=== PATIENT | male | born 1960 | race Caucasian/White ===

== ENCOUNTER 2016-07-25 05:01 | Observation (INO) | payer OTHER ==
[2016-07-25] VITALS (9 sets, daily range): BP systolic 111–130; BP diastolic 71–87
[~2016-07-25] VITALS: Ht 170.2 cm; Wt 87.7 kg
[~2016-07-25 05:01] MED LIST: BENA20TA2 PO; CARI350T PO; CYCL-259 PO; GLIP5TAB10 PO; GLIP5TAB22 PO; HYDR-3307 PO; HYDR1LIQ6 PO; HYDR1TAB14 PO; INSU200I4 SQ-INSULIN; LISI-167 PO; LISI-170 PO; METF500T27 PO; METF500T4 PO; ONDA4TAB7 PO; OXYC10SY PEG; SULF1TAB24 PO; TRAZ150T68 PO; TRAZ50TA18 PO
[2016-07-25] MEDS ORDERED: FENT1PAT77 TD (06:00)
[2016-07-25 06:21] LABS: HEMOGLOBIN 7.9 g/dL (13.7-18.0)
[2016-07-25 06:23] LABS: BLOOD UREA NITROGEN 12 mg/dL (7-18)
[2016-07-25 06:27] LABS: ASPARTATE AMINO TRANSFERASE 17 U/L (15-37)
[2016-07-25 07:43] LABS: ANISOCYTOSIS 1+; OVALOCYTES 1+; POLYCHROMASIA 1+
[2016-07-25] MEDS ORDERED: LIDOCAINE 1%, 20ML ONE (08:26)
[2016-07-25] MEDS ORDERED: FENTANYL 75 MCG PATCH TD SCH (09:30)
[2016-07-25] MEDS ORDERED: INSU100V5 SQ-INSULIN (09:36)
[2016-07-25] MEDS ORDERED: HYDROmorphone 1 MG/ML, 1ML ONE ×4 (09:39→16:22)
[2016-07-25] MEDS ORDERED: VISIPAQUE 270 MG/ML, 50ML BOTTLE ONE (09:42)
[2016-07-25] MEDS ORDERED: HYDROmorphone 2MG TABLET JT PRN (10:00)
[2016-07-25] MEDS ORDERED: ONDANSETRON 2MG/ML, 2ML IVP PRN (10:00)
[2016-07-25] MEDS: HYDROmorphone 2 MG/ML, 1ML IV PRN ×4 (10:10→16:25)
[2016-07-25] MEDS ORDERED: ENOXAPARIN 40 MG/0.4 ML ONE (10:32)
[2016-07-25] MEDS: ENOXAPARIN 40 MG/0.4 ML SQ SCH (10:35)
[2016-07-25] MEDS: INSULIN REGULAR 100 UNITS/ML, 3ML VIAL SQ-INSULIN SCH ×3 (12:12→20:10)
[2016-07-25] MEDS: HYDROmorphone 1 MG/ML, 1ML IVPush PRN ×2 (20:02→23:40)
[2016-07-25] MEDS ORDERED: TRAZODONE 150MG TABLET JT SCH (21:00)
[2016-07-26 02:27] VITALS: BP 138/85
[2016-07-26] MEDS: HYDROmorphone 1 MG/ML, 1ML IVPush PRN ×3 (03:35→09:30)
[2016-07-26 04:03] LABS: HEMOGLOBIN 10.1 g/dL (13.7-18.0)
[2016-07-26 04:15] LABS: ANISOCYTOSIS 1+; OVALOCYTES 1+; POIKILOCYTOSIS 1+; POLYCHROMASIA 1+
[2016-07-26 04:16] LABS: MONOS WITH VACUOLES 1+
[2016-07-26 04:17] LABS: BLOOD UREA NITROGEN 8 mg/dL (7-18)
[2016-07-26] MEDS: INSULIN REGULAR 100 UNITS/ML, 3ML VIAL SQ-INSULIN SCH ×2 (07:23→11:06)
[2016-07-26 07:43] VITALS: BP 131/85
[2016-07-26] MEDS: ENOXAPARIN 40 MG/0.4 ML SQ SCH (09:29)
== END 2016-07-26 11:10 | disposition home or self-care (01) ==
LOC: ED 07:32 → EDIP 07:33 → INTOOBSV 07:33 → ED 07:43 → 3NW 10:40
PROVIDERS: ADMIT Internal Medicine; ATTEND Family Medicine
DX: T85.628A Displacement of other specified internal prosthetic devices, implants and grafts, initial encounter (principal); D64.9 Anemia, unspecified; C15.9 Malignant neoplasm of esophagus, unspecified; I10 Essential (primary) hypertension; E11.65 Type 2 diabetes mellitus with hyperglycemia; E44.0 Moderate protein-calorie malnutrition; E87.1 Hypo-osmolality and hyponatremia; G47.00 Insomnia, unspecified; Z80.3 Family history of malignant neoplasm of breast; Z83.3 Family history of diabetes mellitus; Y84.9 Medical procedure, unspecified as the cause of abnormal reaction of the patient, or of later complication, without mention of misadventure at the time of the procedure; Y92.89 Other specified places as the place of occurrence of the external cause
CPT/HCPCS: 36415; 36430; 36569; 49452; 74022; 75984; 76937; 77001; 80048; 80053; 82962; 85025; 86850; 86900; 86923; 96372; 96374; 96376; 99291; C1729; C1751; C1769; G0378; J1170; J1650; J3490; P9016; Q9966

== ENCOUNTER → 2016-08-01 | Outpatient (CLI) | payer OTHER ==
[~2016-08-01] MED LIST changes: +FENT1PAT77 TD; +INSU100V5 SQ-INSULIN
== END | disposition home or self-care (01) ==
LOC: ROC 09:16
PROVIDERS: ATTEND Radiology Radiation Oncology
DX: Z51.0 Encounter for antineoplastic radiation therapy (principal); C15.5 Malignant neoplasm of lower third of esophagus; E11.9 Type 2 diabetes mellitus without complications; I10 Essential (primary) hypertension
CPT/HCPCS: 99213; G0463

== ENCOUNTER → 2016-08-05 | Outpatient (CLI) | payer OTHER ==
[~2016-08-05] MED LIST changes: +OMNIPAQUE 350 MG/ML, 100ML BOTTLE ONE
== END | disposition home or self-care (01) ==
LOC: RAD 12:21
PROVIDERS: ATTEND Internal Medicine Hematology & Oncology
DX: C15.5 Malignant neoplasm of lower third of esophagus (principal); R59.0 Localized enlarged lymph nodes; J90 Pleural effusion, not elsewhere classified; J98.11 Atelectasis; K22.8 Other specified diseases of esophagus; M47.896 Other spondylosis, lumbar region; Z93.4 Other artificial openings of gastrointestinal tract status
CPT/HCPCS: 71260; 74177; Q9967

== ENCOUNTER 2016-08-31 13:10 | Inpatient (IN) | payer OTHER ==
[~2016-08-31] VITALS: Ht 170.2 cm; Wt 92.5 kg
[~2016-08-31 13:10] MED LIST changes: -OMNIPAQUE 350 MG/ML, 100ML BOTTLE ONE
[2016-08-31] MEDS ORDERED: SODIUM CHLORIDE 0.9% 1,000 ML IV ONE (13:33)
[2016-08-31] MEDS ORDERED: SODIUM CHLORIDE FLUSH 10ML SYR IVF ONE (14:00)
[2016-08-31 14:18] LABS: BLOOD UREA NITROGEN 13 mg/dL (7-18)
[2016-08-31] MEDS ORDERED: ONDANSETRON 2MG/ML, 2ML IVPush ONE (15:30)
[2016-08-31] MEDS ORDERED: OMNIPAQUE 350 MG/ML, 100ML BOTTLE ONE (15:40)
[2016-08-31] MEDS ORDERED: FENT1PAT9 TD (15:58)
[2016-08-31] MEDS ORDERED: TRAZ50TA18 PO (15:58)
[2016-08-31] MEDS ORDERED: ACET-1600 PO (15:58)
[2016-08-31] MEDS ORDERED: CARI350T PO (15:58)
[2016-08-31] MEDS ORDERED: ESCI10TA PO (15:58)
[2016-08-31] MEDS ORDERED: PROM12.55 PO (15:58)
[2016-08-31] MEDS ORDERED: HYDROmorphone 1 MG/ML, 1ML IV ONE (16:00)
[2016-08-31] MEDS ORDERED: VANCOMYCIN PER PHARMACY MC ONE (17:00)
[2016-08-31] MEDS ORDERED: PIPERACILLIN/TAZO/PMX 3.375GM 50 ML IVPB ONE (17:00)
[2016-08-31] MEDS ORDERED: ONDANSETRON 2MG/ML, 2ML ONE (17:36)
[2016-08-31] MEDS ORDERED: LORazepam 2 MG/ML, 1ML ONE (17:37)
[2016-08-31] MEDS ORDERED: PIPERACILLIN/TAZO/PMX 3.375GM 50 ML ONE (17:39)
[2016-08-31] MEDS ORDERED: OMNIPAQUE 350 MG/ML, 150 ML BOTTLE ONE (17:40)
[2016-08-31] MEDS ORDERED: VANCOMYCIN 1,800 MG in SODIUM CHLORIDE 0.9% 250 ML IV ONE (18:00)
[2016-08-31] MEDS ORDERED: FENTANYL 50 MCG PATCH TD SCH (18:00)
[2016-08-31] MEDS ORDERED: SODIUM CHLORIDE 0.9% 1,000 ML IV SCH (18:01)
[2016-08-31 18:11] VITALS: BP 136/89
[2016-08-31] MEDS ORDERED: BISACODYL 10 MG SUPP PR PRN (18:30)
[2016-08-31] MEDS: INSULIN REGULAR 100 UNITS/ML, 3ML VIAL SQ-INSULIN SCH (18:30)
[2016-08-31] MEDS: HYDROmorphone 2 MG/ML, 1ML IV PRN ×3 (18:35→22:47)
[2016-08-31 19:27] VITALS: BP 111/71
[2016-08-31] MEDS: MEROPENEM 1 GM in SODIUM CHLORIDE 0.9% 100 ML IV SCH (20:00)
[2016-08-31] MEDS: ONDANSETRON 2MG/ML, 2ML IVP PRN (22:03)
[2016-08-31] MEDS: FLUCONAZOLE 400 MG/200 ML 200 ML IV SCH (22:49)
[2016-08-31] MEDS ORDERED: DIPHENHYDRAMINE 50 MG/ML, 1ML IVPush ONE (23:30)
[2016-09-01] MEDS: INSULIN REGULAR 100 UNITS/ML, 3ML VIAL SQ-INSULIN SCH ×4 (00:30→20:15)
[2016-09-01] MEDS: D5%-0.9% NACL 1,000 ML IV SCH ×2 (01:02→11:36)
[2016-09-01] MEDS: ACETAMINOPHEN 650 MG SUPP PR PRN (01:09)
[2016-09-01 01:13] VITALS: BP 146/84
[2016-09-01] MEDS ORDERED: HYDROmorphone 1 MG/ML, 1ML ONE (01:51)
[2016-09-01] MEDS: HYDROmorphone 2 MG/ML, 1ML IV PRN ×7 (01:53→22:05)
[2016-09-01] MEDS: MEROPENEM 1 GM in SODIUM CHLORIDE 0.9% 100 ML IV SCH ×3 (04:20→20:15)
[2016-09-01 04:55] LABS: ASPARTATE AMINO TRANSFERASE 24 U/L (15-37); BLOOD UREA NITROGEN 7 mg/dL (7-18)
[2016-09-01] MEDS: ONDANSETRON 2MG/ML, 2ML IVP PRN ×2 (08:22→15:13)
[2016-09-01 08:34] VITALS: BP 134/80
[2016-09-01] MEDS ORDERED: FENTANYL 25 MCG PATCH ONE (10:51)
[2016-09-01] MEDS: FENTANYL 25 MCG PATCH TD SCH (10:54)
[2016-09-01 15:02] VITALS: BP 147/85
[2016-09-01] MEDS ORDERED: PHARMACOKINETIC MONITORING MC PRN (15:30)
[2016-09-01] MEDS ORDERED: VANCOMYCIN PER PHARMACY MC PRN (15:30)
[2016-09-01] MEDS ORDERED: POTASSIUM CHLORIDE 40 MEQ in SODIUM CHLORIDE 0.9% 500 ML IV ONE (15:30)
[2016-09-01] MEDS ORDERED: VANCOMYCIN PMX 1GM/200ML 200 ML IV ONE (15:30)
[2016-09-01] MEDS ORDERED: PHARMACOKINETIC CONSULTATION MC ONE (15:30)
[2016-09-01 19:52] VITALS: BP 126/76
[2016-09-01] MEDS: ONDANSETRON 2MG/ML, 2ML IVPush PRN (22:05)
[2016-09-01] MEDS: TRAZODONE 50MG TABLET PO SCH (22:06)
[2016-09-01] MEDS: VANCOMYCIN 1,800 MG in SODIUM CHLORIDE 0.9% 250 ML IV SCH (22:06)
[2016-09-02] MEDS: FLUCONAZOLE 400 MG/200 ML 200 ML IV SCH (00:34)
[2016-09-02] MEDS: HYDROmorphone 2 MG/ML, 1ML IV PRN ×8 (01:06→23:31)
[2016-09-02] MEDS: ONDANSETRON 2MG/ML, 2ML IVPush PRN ×5 (02:17→21:21)
[2016-09-02 02:33] VITALS: BP 119/72
[2016-09-02] MEDS: MEROPENEM 1 GM in SODIUM CHLORIDE 0.9% 100 ML IV SCH ×3 (04:16→21:20)
[2016-09-02 05:00] LABS: BLOOD UREA NITROGEN 4 mg/dL (7-18)
[2016-09-02] MEDS: INSULIN REGULAR 100 UNITS/ML, 3ML VIAL SQ-INSULIN SCH ×4 (07:00→21:00)
[2016-09-02 07:53] VITALS: BP 125/92
[2016-09-02] MEDS: CITALOPRAM 20 MG TABLET PO SCH (07:59)
[2016-09-02] MEDS: VANCOMYCIN 1,800 MG in SODIUM CHLORIDE 0.9% 250 ML IV SCH ×2 (10:34→22:23)
[2016-09-02 13:42] VITALS: BP 118/75
[2016-09-02] MEDS: CETIRIZINE 10 MG TABLET PO SCH (17:15)
[2016-09-02 19:44] VITALS: BP 130/50
[2016-09-02] MEDS: TRAZODONE 50MG TABLET PO SCH (21:21)
[2016-09-03] MEDS: FLUCONAZOLE 400 MG/200 ML 200 ML IV SCH (00:29)
[2016-09-03] MEDS: ONDANSETRON 2MG/ML, 2ML IVPush PRN ×4 (01:28→19:54)
[2016-09-03] MEDS: HYDROmorphone 2 MG/ML, 1ML IV PRN ×6 (02:46→21:24)
[2016-09-03 03:38] VITALS: BP 118/66
[2016-09-03] MEDS: MEROPENEM 1 GM in SODIUM CHLORIDE 0.9% 100 ML IV SCH ×2 (05:36→19:53)
[2016-09-03 07:48] VITALS: BP 117/73
[2016-09-03] MEDS: CITALOPRAM 20 MG TABLET PO SCH (09:08)
[2016-09-03] MEDS: CETIRIZINE 10 MG TABLET PO SCH (09:08)
[2016-09-03] MEDS: INSULIN REGULAR 100 UNITS/ML, 3ML VIAL SQ-INSULIN SCH ×4 (09:28→21:29)
[2016-09-03 13:21] VITALS: BP 134/84
[2016-09-03] MEDS: VANCOMYCIN 1,800 MG in SODIUM CHLORIDE 0.9% 250 ML IV SCH (15:47)
[2016-09-03 19:04] VITALS: BP 130/77
[2016-09-03] MEDS: TRAZODONE 50MG TABLET PO SCH (21:23)
[2016-09-04] MEDS: ONDANSETRON 2MG/ML, 2ML IVPush PRN ×2 (00:20→04:30)
[2016-09-04] MEDS: HYDROmorphone 2 MG/ML, 1ML IV PRN ×8 (00:20→23:43)
[2016-09-04] MEDS: FLUCONAZOLE 400 MG/200 ML 200 ML IV SCH (00:20)
[2016-09-04 03:06] VITALS: BP 124/74
[2016-09-04] MEDS: MEROPENEM 1 GM in SODIUM CHLORIDE 0.9% 100 ML IV SCH ×2 (03:21→11:46)
[2016-09-04] MEDS: VANCOMYCIN 1,800 MG in SODIUM CHLORIDE 0.9% 250 ML IV SCH (04:30)
[2016-09-04 05:32] LABS: BLOOD UREA NITROGEN 4 mg/dL (7-18)
[2016-09-04] MEDS: INSULIN REGULAR 100 UNITS/ML, 3ML VIAL SQ-INSULIN SCH ×4 (07:00→20:13)
[2016-09-04 07:26] VITALS: BP 116/78
[2016-09-04] MEDS: CITALOPRAM 20 MG TABLET PO SCH (09:40)
[2016-09-04] MEDS: CETIRIZINE 10 MG TABLET PO SCH (09:40)
[2016-09-04] MEDS: FENTANYL 25 MCG PATCH TD SCH (11:47)
[2016-09-04 14:00] VITALS: BP 118/79
[2016-09-04] MEDS ORDERED: POTASSIUM CHLORIDE 40 MEQ in SODIUM CHLORIDE 0.9% 500 ML IV ONE (14:00)
[2016-09-04] MEDS ORDERED: PIPERACILLIN/TAZO/PMX 3.375GM 50 ML IV SCH (14:00)
[2016-09-04] MEDS: CEPHALEXIN 500 MG CAPSULE PO SCH ×2 (17:08→20:09)
[2016-09-04] MEDS: SULFAMETH./TRIMETHOPRIM DS 800MG/160MG TABLET PO SCH (17:09)
[2016-09-04 19:44] VITALS: BP 143/87
[2016-09-04] MEDS: TRAZODONE 50MG TABLET PO SCH (20:09)
[2016-09-05] MEDS: ACETAMINOPHEN 650 MG SUPP PR PRN (01:06)
[2016-09-05] MEDS: ONDANSETRON 2MG/ML, 2ML IVPush PRN (01:15)
[2016-09-05 01:21] VITALS: BP 160/96
[2016-09-05] MEDS: HYDROmorphone 2 MG/ML, 1ML IV PRN ×6 (02:38→17:33)
[2016-09-05 03:00] VITALS: BP 109/69
[2016-09-05] MEDS: SULFAMETH./TRIMETHOPRIM DS 800MG/160MG TABLET PO SCH ×2 (03:36→15:00)
[2016-09-05] MEDS: CEPHALEXIN 500 MG CAPSULE PO SCH ×3 (03:36→15:00)
[2016-09-05 04:55] LABS: BLOOD UREA NITROGEN 6 mg/dL (7-18)
[2016-09-05] MEDS: CETIRIZINE 10 MG TABLET PO SCH (07:34)
[2016-09-05] MEDS: INSULIN REGULAR 100 UNITS/ML, 3ML VIAL SQ-INSULIN SCH ×3 (07:34→16:12)
[2016-09-05] MEDS: CITALOPRAM 20 MG TABLET PO SCH (07:34)
[2016-09-05 07:38] VITALS: BP 133/86
[2016-09-05 13:01] VITALS: BP 112/74
[2016-09-05] MEDS ORDERED: SULF1TAB3 PO (16:17)
[2016-09-05] MEDS ORDERED: CEPH-376 PO (16:17)
[2016-09-05] MEDS ORDERED: SENN1TAB7 PO (16:25)
== END 2016-09-05 18:00 | disposition home or self-care (01) | DRG 603 ==
LOC: ED 14:10 → EDIP 17:06 → 3NW 17:44
PROVIDERS: ADMIT Internal Medicine; ATTEND Internal Medicine
DX: L02.211 Cutaneous abscess of abdominal wall (principal); E44.0 Moderate protein-calorie malnutrition; Z85.01 Personal history of malignant neoplasm of esophagus; G47.00 Insomnia, unspecified; E11.9 Type 2 diabetes mellitus without complications; Z79.4 Long term (current) use of insulin; I10 Essential (primary) hypertension; Z83.3 Family history of diabetes mellitus; Z80.3 Family history of malignant neoplasm of breast; D64.9 Anemia, unspecified; F32.9 Major depressive disorder, single episode, unspecified; Z92.3 Personal history of irradiation; Z92.21 Personal history of antineoplastic chemotherapy; Z68.39 Body mass index [BMI] 39.0-39.9, adult
CPT/HCPCS: 36415; 71010; 74177; 74220; 80048; 80053; 82040; 82962; 83036; 83605; 83735; 84145; 85025; 87040; 87070; 87077; 87186; 87205; 87324; 96361; 96365; 96375; J1170; J1450; J1815; J2185; J2405; J2543; J3370; J3480; J7042; Q9967; J1200; J7030; J7040; J7050

== ENCOUNTER 2016-09-11 08:20 | Inpatient (IN) | payer OTHER ==
[~2016-09-11] VITALS: Ht 170.2 cm; Wt 90.9 kg
[~2016-09-11 08:20] MED LIST changes: +ACET-1600 PO; +BUPIVACAINE/PF-EPI 0.25% 1:200K ONE; +CEPH-376 PO; +ESCI10TA PO; +FENT1PAT9 TD; +PROM12.55 PO; +SENN1TAB7 PO; +SULF1TAB3 PO
[2016-09-11 09:05] VITALS: BP 120/80
[2016-09-11] MEDS ORDERED: LACTATED RINGERS 1,000 ML IV SCH (09:14)
[2016-09-11] MEDS ORDERED: LIDOCAINE 1%, 2ML SQ PRN (09:30)
[2016-09-11] MEDS ORDERED: FENTANYL PF 250 MCG/5ML ONE ×2 (11:04→14:00)
[2016-09-11] MEDS ORDERED: MIDAZOLAM 1 MG/ML, 2ML ONE (11:04)
[2016-09-11] MEDS ORDERED: PHENYLEPHRINE 10 MG/ML ONE (11:54)
[2016-09-11] MEDS ORDERED: ROCURONIUM 10 MG/ML ONE (11:54)
[2016-09-11] MEDS ORDERED: SUCCINYLCHOLINE 20 MG/ML, 10ML ONE (11:54)
[2016-09-11] MEDS ORDERED: CEFOTETAN 2 GM ONE (11:54)
[2016-09-11] MEDS ORDERED: VASOPRESSIN 20 UNIT/ML, 1ML ONE (11:54)
[2016-09-11] MEDS ORDERED: PROPOFOL 10 MG/ML, 20ML ONE (11:54)
[2016-09-11] MEDS ORDERED: SUGAMMADEX 200 MG/2 ML IVPush ONE (11:54)
[2016-09-11] MEDS ORDERED: ONDANSETRON 2MG/ML, 2ML ONE ×2 (11:54)
[2016-09-11] MEDS ORDERED: ESMOLOL 100 MG/10 ML ONE (11:54)
[2016-09-11] MEDS ORDERED: HYDROmorphone 1 MG/ML, 1ML ONE (12:37)
[2016-09-11] MEDS ORDERED: INSULIN SINGLE DOSE, ER SQ-INSULIN ONE (13:49)
[2016-09-11] MEDS ORDERED: ALBUMIN HUMAN 5% 500 ML ONE (13:49)
[2016-09-11] MEDS ORDERED: HYDROMORPHONE EPIDCONT SCH ×2 (14:30→18:10)
[2016-09-11] MEDS ORDERED: SODIUM CHLORIDE 0.9% EPIDCONT SCH ×2 (14:30→18:10)
[2016-09-11] MEDS ORDERED: BUPIVACAINE EPIDCONT SCH ×2 (14:30→18:10)
[2016-09-11] MEDS ORDERED: BUPIVACAINE/PF 0.5% ONE (17:09)
[2016-09-11] MEDS ORDERED: BUPIVACAINE/PF 0.25% ONE (17:10)
[2016-09-11] MEDS ORDERED: FENTANYL 75 MCG PATCH TD SCH (18:00)
[2016-09-11] MEDS ORDERED: hydrALAzine 20 MG/ML, 1ML IVPush PRN (18:00)
[2016-09-11] MEDS ORDERED: ONDANSETRON 2MG/ML, 2ML IVPush PRN ×2 (18:00→18:30)
[2016-09-11] MEDS ORDERED: ENALAPRILAT 1.25 MG/ML, 2ML IVPush PRN (18:00)
[2016-09-11] MEDS: HYDROmorphone 1 MG/ML, 1ML IV PRN ×2 (18:00→18:15)
[2016-09-11] MEDS ORDERED: DIPHENHYDRAMINE 50 MG/ML, 1ML IVPush PRN (18:00)
[2016-09-11] MEDS ORDERED: HYDROmorphone 2 MG/ML, 1ML ONE (18:01)
[2016-09-11] MEDS ORDERED: hydrALAzine 20 MG/ML, 1ML IV PRN (18:30)
[2016-09-11] MEDS ORDERED: PROMETHAZINE 25 MG/ML, 1ML IV PRN (18:30)
[2016-09-11] MEDS ORDERED: MEPERIDINE/PF 25MG/0.5ML IVPush PRN (18:30)
[2016-09-11] MEDS ORDERED: EPHEDRINE 50 MG/ML, 1ML IVPush PRN ×2 (18:30→21:00)
[2016-09-11] MEDS ORDERED: MIDAZOLAM 1 MG/ML, 2ML IV PRN (18:30)
[2016-09-11] MEDS ORDERED: LABETALOL 5MG/ML, 20ML IV PRN (18:30)
[2016-09-11] MEDS ORDERED: FENTANYL PF 100 MCG/2ML IV PRN (18:30)
[2016-09-11] MEDS: LACTATED RINGERS 1,000 ML IV SCH (20:45)
[2016-09-11] MEDS ORDERED: NALBUPHINE 10 MG/ML, 1ML IV PRN (21:00)
[2016-09-11] MEDS ORDERED: DO NOT GIVE XX SCH (21:00)
[2016-09-11] MEDS ORDERED: NALOXONE 0.4 MG/ML, 1ML IVPush PRN (21:00)
[2016-09-11] MEDS ORDERED: NALOXONE 0.4 MG/ML, 1ML IV PRN ×2 (21:00)
[2016-09-11] MEDS ORDERED: DO NOT GIVE MC SCH (21:00)
[2016-09-11] MEDS ORDERED: ONDANSETRON 2MG/ML, 2ML IV PRN (21:00)
[2016-09-11] MEDS: FENTANYL PF 100 MCG/2ML IV PRN ×2 (21:39→23:25)
[2016-09-11] MEDS: PIPERACILLIN/TAZO/PMX 3.375GM 50 ML IV SCH (21:39)
[2016-09-11] MEDS: LORazepam 2 MG/ML, 1ML IVPush PRN (21:39)
[2016-09-11] MEDS: INSULIN REGULAR 100 UNITS/ML, 3ML VIAL SQ-INSULIN SCH (21:53)
[2016-09-12] MEDS: LORazepam 2 MG/ML, 1ML IVPush PRN ×2 (00:15→23:25)
[2016-09-12] MEDS: HYDROmorphone 1 MG/ML, 1ML IV PRN ×3 (00:16→22:58)
[2016-09-12] MEDS: PIPERACILLIN/TAZO/PMX 3.375GM 50 ML IV SCH ×3 (03:05→18:22)
[2016-09-12] MEDS: FENTANYL PF 100 MCG/2ML IV PRN ×3 (03:38→21:41)
[2016-09-12 04:00] VITALS: BP 92/52
[2016-09-12 04:52] LABS: BLOOD UREA NITROGEN 9 mg/dL (7-18)
[2016-09-12] MEDS: LACTATED RINGERS 1,000 ML IV SCH ×2 (05:48→17:31)
[2016-09-12] MEDS: INSULIN REGULAR 100 UNITS/ML, 3ML VIAL SQ-INSULIN SCH ×4 (07:00→21:00)
[2016-09-12] MEDS: PANTOPRAZOLE 40 MG IV IVPush SCH (07:50)
[2016-09-12] MEDS ORDERED: BUPIVACAINE 0.25% ONE (08:30)
[2016-09-12] MEDS ORDERED: HYDROMORPHONE EPIDCONT SCH (09:00)
[2016-09-12] MEDS ORDERED: ENOXAPARIN 40 MG/0.4 ML SQ SCH (09:00)
[2016-09-12] MEDS ORDERED: BUPIVACAINE EPIDCONT SCH (09:00)
[2016-09-12] MEDS ORDERED: SODIUM CHLORIDE 0.9% EPIDCONT SCH (09:00)
[2016-09-12] MEDS: KETOROLAC 30 MG/1 ML IVPush PRN ×2 (13:05→20:42)
[2016-09-13] MEDS: PIPERACILLIN/TAZO/PMX 3.375GM 50 ML IV SCH ×4 (00:23→18:15)
[2016-09-13] MEDS: LACTATED RINGERS 1,000 ML IV SCH ×3 (00:24→16:00)
[2016-09-13] MEDS ORDERED: BUPIVACAINE/PF 0.5%, 30ML 62.5 ML in SODIUM CHLORIDE 0.9% 187.5 ML EPIDCONT SCH (00:30)
[2016-09-13] MEDS ORDERED: SODIUM CHLORIDE 0.9% 1,000ML IVBOLUS ONE ×2 (00:30→20:30)
[2016-09-13] MEDS: OXYcodone 5 MG/5 ML ORAL.SOL UDC JT PRN ×2 (04:16→10:16)
[2016-09-13 05:13] LABS: BLOOD UREA NITROGEN 23 mg/dL (7-18)
[2016-09-13] MEDS: PANTOPRAZOLE 40 MG IV IVPush SCH (07:55)
[2016-09-13] MEDS: INSULIN REGULAR 100 UNITS/ML, 3ML VIAL SQ-INSULIN SCH ×3 (09:00→21:20)
[2016-09-13] MEDS ORDERED: MIDAZOLAM 1 MG/ML, 2ML ONE (11:54)
[2016-09-13] MEDS ORDERED: FENTANYL PF 250 MCG/5ML ONE (11:54)
[2016-09-13] MEDS ORDERED: PROPOFOL 10 MG/ML, 20ML ONE (12:41)
[2016-09-13] MEDS ORDERED: SUCCINYLCHOLINE 20 MG/ML, 10ML ONE (12:41)
[2016-09-13] MEDS ORDERED: ROCURONIUM 10 MG/ML ONE (12:41)
[2016-09-13] MEDS ORDERED: ALBUMIN HUMAN 5% 500 ML ONE (13:02)
[2016-09-13] MEDS: HYDROmorphone 1 MG/ML, 1ML IV PRN (14:42)
[2016-09-13 15:26] LABS: ABG COLLECTION SITE RIGHT RADIAL
[2016-09-13 15:27] LABS: COLLATERAL CIRCULATION TESTING NORMAL
[2016-09-13] MEDS: LORazepam 2 MG/ML, 1ML IVPush PRN (15:35)
[2016-09-13] MEDS: PROPOFOL 100 ML IV PRN ×2 (16:01→21:48)
[2016-09-13] MEDS: BUPIVACAINE/PF 0.5%, 30ML 62.5 ML in SODIUM CHLORIDE 0.9% 187.5 ML EPIDCONT SCH (16:18)
[2016-09-13] MEDS: FENTANYL PF 2,500 MCG in SODIUM CHLORIDE 0.9% 200 ML IV PRN (16:19)
[2016-09-13] MEDS ORDERED: PHARMACY MAY ADJ FOR RENAL FX MC SCH (17:30)
[2016-09-13] MEDS ORDERED: LIDOCAINE-MPF 1%, 2ML ENDO PRN (17:30)
[2016-09-13] MEDS: NOREPINEPHRINE 4 MG in SODIUM CHLORIDE 0.9% 246 ML IV PRN (22:20)
[2016-09-14] MEDS: LACTATED RINGERS 1,000 ML IV SCH ×3 (00:29→16:00)
[2016-09-14] MEDS: PIPERACILLIN/TAZO/PMX 3.375GM 50 ML IV SCH ×5 (00:46→23:46)
[2016-09-14] MEDS: INSULIN REGULAR 100 UNITS/ML, 3ML VIAL SQ-INSULIN SCH ×4 (03:30→21:00)
[2016-09-14 04:22] LABS: BLOOD UREA NITROGEN 21 mg/dL (7-18)
[2016-09-14 04:31] LABS: ABG COLLECTION SITE RIGHT BRACHIAL
[2016-09-14] MEDS: PANTOPRAZOLE 40 MG IV IVPush SCH (08:59)
[2016-09-14] MEDS: PROPOFOL 100 ML IV PRN ×3 (10:40→22:17)
[2016-09-14] MEDS: NOREPINEPHRINE 4 MG in SODIUM CHLORIDE 0.9% 246 ML IV PRN (16:58)
[2016-09-15] MEDS: FENTANYL PF 2,500 MCG in SODIUM CHLORIDE 0.9% 200 ML IV PRN (01:09)
[2016-09-15] MEDS: BUPIVACAINE/PF 0.5%, 30ML 62.5 ML in SODIUM CHLORIDE 0.9% 187.5 ML EPIDCONT SCH (01:10)
[2016-09-15] MEDS: INSULIN REGULAR 100 UNITS/ML, 3ML VIAL SQ-INSULIN SCH ×4 (04:07→20:03)
[2016-09-15] MEDS: PROPOFOL 100 ML IV PRN ×2 (04:08→11:27)
[2016-09-15 04:48] LABS: ABG COLLECTION SITE RIGHT RADIAL; COLLATERAL CIRCULATION TESTING NORMAL
[2016-09-15] MEDS: LACTATED RINGERS 1,000 ML IV SCH (05:24)
[2016-09-15] MEDS: PIPERACILLIN/TAZO/PMX 3.375GM 50 ML IV SCH ×3 (06:10→18:13)
[2016-09-15 07:08] LABS: BLOOD UREA NITROGEN 14 mg/dL (7-18)
[2016-09-15] MEDS: OXYcodone 5 MG/5 ML ORAL.SOL UDC JT PRN ×3 (08:29→19:55)
[2016-09-15] MEDS: PANTOPRAZOLE 40 MG IV IVPush SCH (09:25)
[2016-09-15] MEDS: FUROSEMIDE 40 MG/4 ML IV SCH ×2 (11:26→23:01)
[2016-09-15] MEDS: POTASSIUM CHLORIDE 10% 20 MEQ/15 ML UDC NG SCH ×2 (11:26→19:55)
[2016-09-15] MEDS: FENTANYL PF 100 MCG/2ML IV PRN (23:14)
[2016-09-16] MEDS: PROPOFOL 100 ML IV PRN ×4 (00:13→23:33)
[2016-09-16] MEDS: BUPIVACAINE/PF 0.5%, 30ML 62.5 ML in SODIUM CHLORIDE 0.9% 187.5 ML EPIDCONT SCH (00:13)
[2016-09-16] MEDS: PIPERACILLIN/TAZO/PMX 3.375GM 50 ML IV SCH ×4 (00:13→18:13)
[2016-09-16] MEDS: FENTANYL PF 2,500 MCG in SODIUM CHLORIDE 0.9% 200 ML IV PRN ×2 (00:32→23:33)
[2016-09-16] MEDS: INSULIN REGULAR 100 UNITS/ML, 3ML VIAL SQ-INSULIN SCH ×4 (03:00→21:00)
[2016-09-16 04:50] LABS: ABG COLLECTION SITE LEFT RADIAL; COLLATERAL CIRCULATION TESTING NORMAL
[2016-09-16] MEDS: OXYcodone 5 MG/5 ML ORAL.SOL UDC JT PRN ×4 (04:53→21:26)
[2016-09-16] MEDS ORDERED: AMIODARONE 150 MG in DEXTROSE 5% 100 ML IV ONE (07:00)
[2016-09-16 07:22] LABS: BLOOD UREA NITROGEN 12 mg/dL (7-18)
[2016-09-16] MEDS ORDERED: DIGOXIN 0.25 MG/ML, 2ML ONE (07:43)
[2016-09-16] MEDS ORDERED: DIGOXIN 0.25 MG/ML, 2ML IVPush ONE (08:00)
[2016-09-16] MEDS: AMIODARONE 900 MG in DEXTROSE 5% 482 ML IV PRN (08:26)
[2016-09-16] MEDS: FILTER 0.22 MICRON IV PRN (08:27)
[2016-09-16] MEDS: PANTOPRAZOLE 40 MG IV IVPush SCH (08:31)
[2016-09-16] MEDS ORDERED: SODIUM CHLORIDE 0.9%, 500ML IVBOLUS ONE (09:00)
[2016-09-16] MEDS ORDERED: MAGNESIUM SULFATE PMX 4GM/100M 100 ML IV ONE (10:30)
[2016-09-16] MEDS: POTASSIUM CHLORIDE 10% 40 MEQ/30 ML UDC NG SCH ×2 (10:45→20:06)
[2016-09-16] MEDS ORDERED: SODIUM CHLORIDE 0.9% 1,000ML IVBOLUS ONE (11:00)
[2016-09-16] MEDS: LACTATED RINGERS 1,000 ML IV SCH (20:06)
[2016-09-17] MEDS: BUPIVACAINE/PF 0.5%, 30ML 62.5 ML in SODIUM CHLORIDE 0.9% 187.5 ML EPIDCONT SCH ×2 (00:19→23:39)
[2016-09-17] MEDS: PIPERACILLIN/TAZO/PMX 3.375GM 50 ML IV SCH ×5 (00:24→23:39)
[2016-09-17] MEDS: OXYcodone 5 MG/5 ML ORAL.SOL UDC JT PRN ×7 (02:32→23:38)
[2016-09-17] MEDS: INSULIN REGULAR 100 UNITS/ML, 3ML VIAL SQ-INSULIN SCH ×4 (02:39→20:42)
[2016-09-17] MEDS: AMIODARONE 900 MG in DEXTROSE 5% 482 ML IV PRN (04:21)
[2016-09-17] MEDS: FILTER 0.22 MICRON IV PRN (04:21)
[2016-09-17 04:50] LABS: ABG COLLECTION SITE RIGHT RADIAL; COLLATERAL CIRCULATION TESTING NORMAL
[2016-09-17] MEDS: PROPOFOL 100 ML IV PRN (05:55)
[2016-09-17 06:41] LABS: BLOOD UREA NITROGEN 10 mg/dL (7-18)
[2016-09-17] MEDS: PANTOPRAZOLE 40 MG IV IVPush SCH (10:11)
[2016-09-17] MEDS: LACTATED RINGERS 1,000 ML IV SCH (20:21)
[2016-09-17] MEDS: FENTANYL PF 2,500 MCG in SODIUM CHLORIDE 0.9% 200 ML IV PRN (22:58)
[2016-09-18] MEDS: OXYcodone 5 MG/5 ML ORAL.SOL UDC JT PRN ×3 (02:38→09:00)
[2016-09-18] MEDS: INSULIN REGULAR 100 UNITS/ML, 3ML VIAL SQ-INSULIN SCH ×4 (03:59→21:02)
[2016-09-18 04:38] LABS: ABG COLLECTION SITE RIGHT RADIAL; COLLATERAL CIRCULATION TESTING NORMAL
[2016-09-18 04:51] LABS: BLOOD UREA NITROGEN 11 mg/dL (7-18)
[2016-09-18] MEDS: PIPERACILLIN/TAZO/PMX 3.375GM 50 ML IV SCH ×3 (05:48→20:43)
[2016-09-18] MEDS: PANTOPRAZOLE 40 MG IV IVPush SCH (07:57)
[2016-09-18] MEDS: METHYLNALTREXONE 12 MG/0.6 ML SQ SCH (10:09)
[2016-09-18] MEDS: AMIODARONE 900 MG in DEXTROSE 5% 482 ML IV PRN (12:15)
[2016-09-18] MEDS: FENTANYL 100 MCG PATCH TD SCH (12:16)
[2016-09-18] MEDS: HYDROmorphone 1 MG/ML, 1ML IV PRN ×5 (12:17→23:09)
[2016-09-18 18:32] VITALS: BP 153/89
[2016-09-19] MEDS: BUPIVACAINE/PF 0.5%, 30ML 62.5 ML in SODIUM CHLORIDE 0.9% 187.5 ML EPIDCONT SCH (00:30)
[2016-09-19 01:10] VITALS: BP 151/89
[2016-09-19] MEDS: HYDROmorphone 1 MG/ML, 1ML IV PRN ×9 (01:55→23:33)
[2016-09-19] MEDS: PIPERACILLIN/TAZO/PMX 3.375GM 50 ML IV SCH ×4 (03:44→22:22)
[2016-09-19] MEDS: LACTATED RINGERS 1,000 ML IV SCH ×2 (03:44→23:34)
[2016-09-19] MEDS: INSULIN REGULAR 100 UNITS/ML, 3ML VIAL SQ-INSULIN SCH ×4 (03:50→22:22)
[2016-09-19 05:41] LABS: BLOOD UREA NITROGEN 12 mg/dL (7-18)
[2016-09-19 07:15] VITALS: BP 152/99
[2016-09-19] MEDS: METHYLNALTREXONE 12 MG/0.6 ML SQ SCH (07:51)
[2016-09-19] MEDS: PANTOPRAZOLE 40 MG IV IVPush SCH (08:57)
[2016-09-19] MEDS ORDERED: OMNIPAQUE 350 MG/ML, 150 ML BOTTLE ONE (11:27)
[2016-09-19 12:25] VITALS: BP 147/92
[2016-09-19 20:00] VITALS: BP 144/83
[2016-09-19] MEDS: AMIODARONE 900 MG in DEXTROSE 5% 482 ML IV PRN (22:23)
[2016-09-20] MEDS: BUPIVACAINE/PF 0.5%, 30ML 62.5 ML in SODIUM CHLORIDE 0.9% 187.5 ML EPIDCONT SCH ×2 (00:30→21:57)
[2016-09-20] MEDS: HYDROmorphone 1 MG/ML, 1ML IV PRN ×9 (01:41→22:36)
[2016-09-20 01:45] VITALS: BP 130/77
[2016-09-20] MEDS: PIPERACILLIN/TAZO/PMX 3.375GM 50 ML IV SCH ×2 (03:35→09:05)
[2016-09-20] MEDS: INSULIN REGULAR 100 UNITS/ML, 3ML VIAL SQ-INSULIN SCH ×4 (03:35→20:27)
[2016-09-20 05:02] LABS: BLOOD UREA NITROGEN 13 mg/dL (7-18)
[2016-09-20 09:00] VITALS: BP 143/76
[2016-09-20] MEDS: PANTOPRAZOLE 40 MG IV IVPush SCH (09:05)
[2016-09-20 13:11] VITALS: BP 128/77
[2016-09-20] MEDS: OXYcodone 5 MG/5 ML ORAL.SOL UDC PO PRN ×2 (17:16→21:18)
[2016-09-20 18:30] VITALS: BP 143/84
[2016-09-20] MEDS: FAMOTIDINE 20 MG/2 ML IVPush SCH (20:23)
[2016-09-20] MEDS: LACTATED RINGERS 1,000 ML IV SCH (20:23)
[2016-09-20] MEDS: PIPERACILLIN/TAZO 3.375 GM in SODIUM CHLORIDE 0.9% 100 ML IV SCH (20:23)
[2016-09-21 01:04] VITALS: BP 130/74
[2016-09-21] MEDS: HYDROmorphone 1 MG/ML, 1ML IV PRN ×5 (01:16→16:49)
[2016-09-21] MEDS: OXYcodone 5 MG/5 ML ORAL.SOL UDC PO PRN ×3 (01:16→08:13)
[2016-09-21] MEDS: PIPERACILLIN/TAZO 3.375 GM in SODIUM CHLORIDE 0.9% 100 ML IV SCH ×2 (03:40→08:38)
[2016-09-21] MEDS: INSULIN REGULAR 100 UNITS/ML, 3ML VIAL SQ-INSULIN SCH ×4 (03:50→20:55)
[2016-09-21 05:43] LABS: ABG COLLECTION SITE ARTERIAL LINE
[2016-09-21 05:56] LABS: BLOOD UREA NITROGEN 13 mg/dL (7-18)
[2016-09-21 06:49] VITALS: BP 120/72
[2016-09-21] MEDS: AMIODARONE 200 MG TABLET PO SCH ×2 (08:13→20:54)
[2016-09-21] MEDS: FAMOTIDINE 20 MG/2 ML IVPush SCH ×2 (08:13→20:55)
[2016-09-21] MEDS: FENTANYL 100 MCG PATCH TD SCH (11:00)
[2016-09-21] MEDS ORDERED: FENTANYL 50 MCG PATCH ONE (11:28)
[2016-09-21] MEDS ORDERED: HYDROmorphone 4MG TABLET PO PRN (12:30)
[2016-09-21 14:03] VITALS: BP 130/79
[2016-09-21] MEDS ORDERED: HYDROmorphone 2MG TABLET ONE (14:39)
[2016-09-21] MEDS: PIPERACILLIN/TAZO 3.375 GM in SODIUM CHLORIDE 0.9% 50 ML IV SCH ×2 (15:00→20:53)
[2016-09-21] MEDS: LACTATED RINGERS 1,000 ML IV SCH (17:30)
[2016-09-21 18:24] VITALS: BP 119/75
[2016-09-21] MEDS: HYDROmorphone 2MG TABLET PO PRN (19:50)
[2016-09-21] MEDS ORDERED: OXYcodone IR 5MG TABLET PO PRN (20:46)
[2016-09-22] MEDS: HYDROmorphone 2MG TABLET PO PRN ×6 (00:01→21:01)
[2016-09-22] MEDS: BUPIVACAINE/PF 0.5%, 30ML 62.5 ML in SODIUM CHLORIDE 0.9% 187.5 ML EPIDCONT SCH (00:09)
[2016-09-22] MEDS: LORazepam 2 MG/ML, 1ML IVPush PRN (00:56)
[2016-09-22 01:50] VITALS: BP 140/75
[2016-09-22] MEDS: PIPERACILLIN/TAZO 3.375 GM in SODIUM CHLORIDE 0.9% 50 ML IV SCH (04:16)
[2016-09-22 05:36] LABS: BLOOD UREA NITROGEN 12 mg/dL (7-18)
[2016-09-22 06:50] VITALS: BP 116/72
[2016-09-22] MEDS: INSULIN REGULAR 100 UNITS/ML, 3ML VIAL SQ-INSULIN SCH ×4 (07:00→21:00)
[2016-09-22] MEDS: AMIODARONE 200 MG TABLET PO SCH ×2 (08:59→20:30)
[2016-09-22] MEDS: AMOXICILLIN/CLAV 875-125MG TABLET PO SCH ×2 (10:51→20:30)
[2016-09-22] MEDS: FAMOTIDINE 20 MG TABLET PO SCH ×2 (10:51→20:30)
[2016-09-22 13:21] VITALS: BP 131/79
[2016-09-22] MEDS: LACTATED RINGERS 1,000 ML IV SCH (13:30)
[2016-09-22] MEDS: ENOXAPARIN 100 MG/ML SQ SCH (14:33)
[2016-09-22] MEDS: LORazepam 0.5MG TABLET PO PRN ×2 (14:33→20:29)
[2016-09-22 19:08] VITALS: BP 131/61
[2016-09-22] MEDS ORDERED: LORazepam 1MG TABLET ONE (20:23)
[2016-09-23 00:23] VITALS: BP 126/75
[2016-09-23] MEDS: BUPIVACAINE/PF 0.5%, 30ML 62.5 ML in SODIUM CHLORIDE 0.9% 187.5 ML EPIDCONT SCH (00:30)
[2016-09-23] MEDS: HYDROmorphone 2MG TABLET PO PRN ×6 (00:48→20:14)
[2016-09-23] MEDS ORDERED: LORazepam 1MG TABLET ONE ×4 (02:19→22:28)
[2016-09-23] MEDS: ENOXAPARIN 100 MG/ML SQ SCH ×2 (02:26→14:19)
[2016-09-23 06:06] LABS: BLOOD UREA NITROGEN 13 mg/dL (7-18)
[2016-09-23] MEDS: INSULIN REGULAR 100 UNITS/ML, 3ML VIAL SQ-INSULIN SCH ×4 (07:00→21:00)
[2016-09-23 07:49] VITALS: BP 137/81
[2016-09-23] MEDS: AMIODARONE 200 MG TABLET PO SCH ×2 (08:10→19:47)
[2016-09-23] MEDS: FAMOTIDINE 20 MG TABLET PO SCH ×2 (08:10→19:47)
[2016-09-23] MEDS: AMOXICILLIN/CLAV 875-125MG TABLET PO SCH ×2 (08:10→19:47)
[2016-09-23] MEDS: LORazepam 0.5MG TABLET PO PRN ×3 (08:11→22:31)
[2016-09-23] MEDS: LACTATED RINGERS 1,000 ML IV SCH (09:30)
[2016-09-23 12:24] VITALS: BP_SYST 163; BP_SYST 166; BP_DIAS 112; BP_DIAS 117
[2016-09-23 20:06] VITALS: BP 126/73
[2016-09-24] MEDS: HYDROmorphone 2MG TABLET PO PRN ×6 (00:11→20:50)
[2016-09-24] MEDS: BUPIVACAINE/PF 0.5%, 30ML 62.5 ML in SODIUM CHLORIDE 0.9% 187.5 ML EPIDCONT SCH ×2 (00:12→23:38)
[2016-09-24 02:16] VITALS: BP 138/80
[2016-09-24] MEDS: ENOXAPARIN 100 MG/ML SQ SCH ×2 (03:34→14:53)
[2016-09-24] MEDS ORDERED: LORazepam 1MG TABLET ONE ×4 (04:06→22:29)
[2016-09-24] MEDS: LORazepam 0.5MG TABLET PO PRN ×4 (04:13→22:33)
[2016-09-24] MEDS: LACTATED RINGERS 1,000 ML IV SCH ×2 (05:30→23:38)
[2016-09-24 06:19] LABS: BLOOD UREA NITROGEN 13 mg/dL (7-18)
[2016-09-24] MEDS: INSULIN REGULAR 100 UNITS/ML, 3ML VIAL SQ-INSULIN SCH ×4 (07:00→21:04)
[2016-09-24 07:53] VITALS: BP 137/79
[2016-09-24] MEDS: AMOXICILLIN/CLAV 875-125MG TABLET PO SCH ×2 (08:46→20:50)
[2016-09-24] MEDS: FAMOTIDINE 20 MG TABLET PO SCH ×2 (08:46→20:51)
[2016-09-24] MEDS: AMIODARONE 200 MG TABLET PO SCH ×2 (08:46→20:51)
[2016-09-24] MEDS: FENTANYL 100 MCG PATCH TD SCH (11:19)
[2016-09-24 14:14] VITALS: BP 149/87
[2016-09-24 20:06] VITALS: BP 137/77
[2016-09-25] MEDS: HYDROmorphone 2MG TABLET PO PRN ×4 (00:43→12:29)
[2016-09-25 02:26] VITALS: BP 121/69
[2016-09-25] MEDS: ENOXAPARIN 100 MG/ML SQ SCH ×2 (02:53→14:55)
[2016-09-25] MEDS: LORazepam 0.5MG TABLET PO PRN ×2 (04:40→11:01)
[2016-09-25 05:51] LABS: BLOOD UREA NITROGEN 15 mg/dL (7-18)
[2016-09-25 06:52] VITALS: BP 141/75
[2016-09-25] MEDS: INSULIN REGULAR 100 UNITS/ML, 3ML VIAL SQ-INSULIN SCH ×2 (07:43→11:26)
[2016-09-25] MEDS: AMIODARONE 200 MG TABLET PO SCH (08:29)
[2016-09-25] MEDS: AMOXICILLIN/CLAV 875-125MG TABLET PO SCH (08:29)
[2016-09-25] MEDS: FAMOTIDINE 20 MG TABLET PO SCH (08:29)
[2016-09-25] MEDS ORDERED: LORazepam 1MG TABLET ONE (10:57)
[2016-09-25 13:40] VITALS: BP 159/79
[2016-09-25] MEDS ORDERED: AMIO200T42 PO (15:00)
[2016-09-25] MEDS ORDERED: DABI150C PO (15:01)
[2016-09-25] MEDS ORDERED: AMOX1TAB64 PO (15:01)
[2016-09-25] MEDS ORDERED: FAMO-79 PO (15:02)
[2016-09-25] MEDS ORDERED: HYDR2TAB13 PO (15:07)
== END 2016-09-25 15:35 | disposition home health service (06) | DRG 326 ==
LOC: ORIP 08:20 → CCU 20:09 → CSU 09-17 18:30 → CCU 09-18 03:48 → 5SO 09-18 17:00 → 4NOR 09-22 18:34 → DCLOUNGE 09-25 15:20
PROVIDERS: ADMIT Thoracic Surgery (Cardiothoracic Vascular Surgery); ATTEND Thoracic Surgery (Cardiothoracic Vascular Surgery)
PROC: 0DHA4UZ Insertion of Feeding Device into Jejunum, Percutaneous Endoscopic Approach (ICD-10-PCS; 2016-09-11)
PROC: 07BD0ZZ Excision of Aortic Lymphatic, Open Approach (ICD-10-PCS; 2016-09-11)
PROC: 07B70ZZ Excision of Thorax Lymphatic, Open Approach (ICD-10-PCS; 2016-09-11)
PROC: 0DB50ZZ Excision of Esophagus, Open Approach (ICD-10-PCS; principal; 2016-09-11 12:15)
PROC: 0DB60ZZ Excision of Stomach, Open Approach (ICD-10-PCS; 2016-09-11 12:15)
PROC: 0DB80ZZ Excision of Small Intestine, Open Approach (ICD-10-PCS; 2016-09-13)
PROC: 0DP Gastrointestinal System, Removal (ICD-10-PCS; 2016-09-13)
PROC: 0DHA0UZ Insertion of Feeding Device into Jejunum, Open Approach (ICD-10-PCS; 2016-09-13)
PROC: 5A1945Z Respiratory Ventilation, 24-96 Consecutive Hours (ICD-10-PCS; 2016-09-13)
PROC: 0BH17EZ Insertion of Endotracheal Airway into Trachea, Via Natural or Artificial Opening (ICD-10-PCS; 2016-09-13)
DX: C15.8 Malignant neoplasm of overlapping sites of esophagus (principal); N17.0 Acute kidney failure with tubular necrosis; I48.1 Persistent atrial fibrillation; I47.1 Supraventricular tachycardia; K94.13 Enterostomy malfunction; E87.6 Hypokalemia; E83.42 Hypomagnesemia; R06.89 Other abnormalities of breathing; T42.75XA Adverse effect of unspecified antiepileptic and sedative-hypnotic drugs, initial encounter; I95.2 Hypotension due to drugs; Z92.3 Personal history of irradiation; Z92.21 Personal history of antineoplastic chemotherapy
CPT/HCPCS: 36415; 36600; 71010; 74241; 80048; 82040; 82330; 82803; 82805; 82947; 82962; 83735; 84100; 84132; 84295; 84478; 85014; 85025; 86850; 86900; 86923; 87081; 87324; 88304; 88305; 88307; 88309; 94002; 94003; 94150; B4087; C1729; J1170; J1650; J1815; J1885; J1940; J2250; J2405; J2543; J2704; J3010; J3490; P9045; Q9967; C1751; C9113; J0282; J0330; J1160; J1200; J2060; J2370; J3475; J7030; J7040; J7050; J7060; J7120; S0028; S0074

== ENCOUNTER → 2016-11-20 | Outpatient (CLI) | payer OTHER ==
[~2016-11-20] MED LIST changes: +AMIO200T42 PO; +AMOX1TAB64 PO; -BUPIVACAINE/PF-EPI 0.25% 1:200K ONE; +DABI150C PO; +FAMO-79 PO; +HYDR2TAB29 PO; +OMNIPAQUE 350 MG/ML, 75ML BOTTLE ONE
== END | disposition home or self-care (01) ==
LOC: CFH 13:54
PROVIDERS: ATTEND Internal Medicine Hematology & Oncology
DX: C15.5 Malignant neoplasm of lower third of esophagus (principal); S22.31XA Fracture of one rib, right side, initial encounter for closed fracture; J90 Pleural effusion, not elsewhere classified; J98.11 Atelectasis; Z90.49 Acquired absence of other specified parts of digestive tract; X58.XXXA Exposure to other specified factors, initial encounter; Y93.89 Activity, other specified; Y92.89 Other specified places as the place of occurrence of the external cause; Y99.8 Other external cause status
CPT/HCPCS: 71260; 82565; Q9967

== ENCOUNTER → 2016-12-02 | Outpatient (CLI) | payer OTHER ==
[~2016-12-02] MED LIST changes: -OMNIPAQUE 350 MG/ML, 75ML BOTTLE ONE
[2016-12-02 13:53] LABS: BLOOD UREA NITROGEN 9 mg/dL (7-18)
== END | disposition home or self-care (01) ==
LOC: CFH 10:59
PROVIDERS: ATTEND Thoracic Surgery (Cardiothoracic Vascular Surgery)
DX: R13.10 Dysphagia, unspecified (principal)
CPT/HCPCS: 36415; 82565; 84520

== ENCOUNTER → 2017-05-07 | Outpatient (CLI) | payer OTHER ==
[~2017-05-07] MED LIST changes: +OMNIPAQUE 350 MG/ML, 75ML BOTTLE ONE; +SULF-169 PO; -SULF1TAB3 PO; +TRAZ150T62 PO; -TRAZ150T68 PO
== END | disposition home or self-care (01) ==
LOC: CFH 08:38
PROVIDERS: ATTEND Internal Medicine Hematology & Oncology
DX: C15.9 Malignant neoplasm of esophagus, unspecified (principal); L90.5 Scar conditions and fibrosis of skin
CPT/HCPCS: 71260; Q9967

== ENCOUNTER → 2017-07-10 | Outpatient (CLI) | payer OTHER | END | disposition home or self-care (01) | LOC: CFH 14:07 | PROVIDERS: ATTEND Internal Medicine Hematology & Oncology | DX: R93.8 Abnormal findings on diagnostic imaging of other specified body structures (principal); C15.5 Malignant neoplasm of lower third of esophagus; Z92.3 Personal history of irradiation | CPT/HCPCS: 71260; 82565; Q9967 ==

== ENCOUNTER → 2017-11-13 | Outpatient (CLI) | payer OTHER ==
[~2017-11-13] MED LIST changes: -METF500T4 PO; +METF500T5 PO; -OMNIPAQUE 350 MG/ML, 75ML BOTTLE ONE
== END | disposition home or self-care (01) ==
LOC: PETCFH 10:20
PROVIDERS: ATTEND Internal Medicine Hematology & Oncology
DX: C15.9 Malignant neoplasm of esophagus, unspecified (principal); R91.1 Solitary pulmonary nodule; M19.012 Primary osteoarthritis, left shoulder; M19.011 Primary osteoarthritis, right shoulder; Z90.49 Acquired absence of other specified parts of digestive tract
CPT/HCPCS: 78815; A9552

== ENCOUNTER → 2018-02-11 | Outpatient (CLI) | payer OTHER ==
[~2018-02-11] MED LIST changes: -BENA20TA2 PO; +BENA20TA4 PO; +METF500T17 PO; -METF500T5 PO; +OMNIPAQUE 350 MG/ML, 75ML BOTTLE ONE; -SENN1TAB7 PO; +SENN1TAB8 PO; +TRAZ-136 PO; -TRAZ50TA18 PO
== END | disposition home or self-care (01) ==
LOC: CFH 08:30
PROVIDERS: ATTEND Internal Medicine Hematology & Oncology
DX: J84.10 Pulmonary fibrosis, unspecified (principal); R13.10 Dysphagia, unspecified
CPT/HCPCS: 71260; Q9967

== ENCOUNTER 2018-02-22 13:06 | Emergency (ER) | payer OTHER ==
[~2018-02-22] VITALS: Ht 170.2 cm; Wt 83.9 kg
[~2018-02-22 13:06] MED LIST changes: -OMNIPAQUE 350 MG/ML, 75ML BOTTLE ONE
[2018-02-22] MEDS ORDERED: SODIUM CHLORIDE FLUSH 10ML SYR IVF ONE (14:00)
[2018-02-22 14:10] LABS: BASOPHILS # (AUTO) 0.01 x10^3/uL (0-0.1); BASOPHILS % (AUTO) 0 % (0-1); EOSINOPHILS # (AUTO) 0.13 x10^3/uL (0-0.4); EOSINOPHILS % (AUTO) 1 % (1-7); LYMPHOCYTES # (AUTO) 0.91 x10^3/uL (1-3.4); LYMPHOCYTES % (AUTO) 8 % (22-44); MD NO; MEAN CORPUSCULAR HGB CONC 34.4 g/dL (33.2-36.2); MEAN PLATELET VOLUME 7.1 fL (7.4-10.4); MONOCYTES # (AUTO) 0.82 x10^3/uL (0.2-0.8); MONOCYTES % (AUTO) 8 % (2-9); NEUTROPHILS % (AUTO) 83 % (42-75); PLATELET COUNT 231 x10^3/uL (130-400); RED BLOOD COUNT 4.48 x10^6/uL (4.38-5.82); RED CELL DISTRIBUTION WIDTH 13.2 % (9.4-14.8)
[2018-02-22 14:22] LABS: ALANINE AMINOTRANSFERASE 23 U/L (12-78); ALBUMIN 3.6 g/dL (3.4-5.0); ANION GAP 11 mmol/L (5-15); CALCIUM 8.5 mg/dL (8.5-10.1); CHLORIDE 105 mmol/L (98-107); CREATININE 0.88 mg/dL (0.7-1.3)
[2018-02-22 14:24] LABS: ALKALINE PHOSPHATASE 59 U/L (45-117); BILIRUBIN,TOTAL 0.5 mg/dL (0.2-1.0); TOTAL PROTEIN 7.9 g/dL (6.4-8.2)
[2018-02-22 16:23] VITALS: BP 126/84
[2018-02-22] MEDS ORDERED: PROC5TAB2 PO (17:24)
[2018-02-22] MEDS ORDERED: OMEP-110 PO (17:24)
[2018-02-22] MEDS ORDERED: HUM100VI SC (17:24)
[2018-02-22] MEDS ORDERED: HYDROMORPHONE (17:24)
[2018-02-22] MEDS ORDERED: FENTANYL PATCH (17:24)
== END 2018-02-22 16:53 | disposition home or self-care (01) ==
LOC: ED 15:35
DX: K40.91 Unilateral inguinal hernia, without obstruction or gangrene, recurrent (principal); I10 Essential (primary) hypertension; E11.9 Type 2 diabetes mellitus without complications; Z90.49 Acquired absence of other specified parts of digestive tract; Z85.01 Personal history of malignant neoplasm of esophagus
CPT/HCPCS: 36415; 74177; 80053; 83605; 85025; 99285

== ENCOUNTER → 2018-03-13 | Outpatient (CLI) | payer OTHER ==
[~2018-03-13] MED LIST changes: +FENT1PAT77 PO; +FENTANYL PATCH; +HUM100VI SC; +HYDROMORPHONE; +OMEP-110 PO; +PROC5TAB2 PO
== END | disposition home or self-care (01) ==
LOC: STAR 12:34
PROVIDERS: ATTEND Thoracic Surgery (Cardiothoracic Vascular Surgery)
DX: Z01.818 Encounter for other preprocedural examination (principal)
CPT/HCPCS: 93005

== ENCOUNTER 2018-03-18 05:48 | Day surgery (SDC) | payer OTHER ==
[~2018-03-18] VITALS: Ht 170.2 cm; Wt 83.0 kg
[2018-03-18] MEDS ORDERED: MIDAZOLAM 1 MG/ML, 2ML ONE (06:15)
[2018-03-18] MEDS ORDERED: FENTANYL PF 250 MCG/5ML ONE (06:15)
[2018-03-18] MEDS ORDERED: PROPOFOL 10 MG/ML, 20ML ONE (06:18)
[2018-03-18] MEDS ORDERED: ROCURONIUM 10MG/ML,5ML ONE (06:19)
[2018-03-18] MEDS ORDERED: SUCCINYLCHOLINE 20 MG/ML, 10ML ONE (06:19)
[2018-03-18] MEDS ORDERED: GLYCOPYRROLATE 0.4 MG/2 ML, 2ML ONE (06:20)
[2018-03-18] MEDS ORDERED: NEOSTIGMINE 1 MG/ML, 10ML ONE (06:20)
[2018-03-18] MEDS ORDERED: SODIUM CHLORIDE 0.9% PF 10ML ONE (06:22)
[2018-03-18] MEDS ORDERED: CEFAZOLIN 1,000 MG ONE ×2 (06:22)
[2018-03-18] MEDS ORDERED: LACTATED RINGERS 1,000 ML IV SCH ×2 (06:26→08:35)
[2018-03-18 06:27] VITALS: BP 126/90
[2018-03-18] MEDS ORDERED: ACETAMINOPHEN 500 MG TABLET PO ONE (06:30)
[2018-03-18] MEDS ORDERED: GABAPENTIN 300 MG CAPSULE PO ONE (06:30)
[2018-03-18] MEDS ORDERED: BUPIVACAINE/PF 0.5% ONE (06:37)
[2018-03-18] MEDS ORDERED: EPINEPHRINE 1 MG/ML, 1ML ONE (06:38)
[2018-03-18] MEDS ORDERED: DEXTROSE 50%, 50ML SYRINGE IVPush ONE (07:00)
[2018-03-18] MEDS ORDERED: DEXTROSE 50%, 50ML SYRINGE ONE (07:04)
[2018-03-18] MEDS ORDERED: HYDROmorphone 1 MG/ML, 1ML IV PRN (07:30)
[2018-03-18] MEDS ORDERED: PROMETHAZINE 25 MG/ML, 1ML IM PRN ×2 (07:30)
[2018-03-18] MEDS ORDERED: ONDANSETRON ODT 8 MG PO PRN (07:30)
[2018-03-18] MEDS ORDERED: ONDANSETRON 2MG/ML, 2ML IV PRN (07:30)
[2018-03-18] MEDS ORDERED: PROMETHAZINE 12.5 MG SUPP PR PRN (07:30)
[2018-03-18] MEDS ORDERED: MORPHINE SULFATE 4 MG/ML, 1ML IVPush PRN (07:30)
[2018-03-18] MEDS ORDERED: PROMETHAZINE 25 MG/ML, 1ML IV PRN (07:30)
[2018-03-18] MEDS ORDERED: PHENYLEPHRINE 10 MG/ML ONE (07:30)
[2018-03-18] MEDS ORDERED: PROMETHAZINE 25 MG SUPP PR PRN (07:30)
[2018-03-18] MEDS ORDERED: MEPERIDINE/PF 25MG/0.5ML IVPush PRN (07:30)
[2018-03-18] MEDS ORDERED: hydrALAzine 20 MG/ML, 1ML IV PRN (07:30)
[2018-03-18] MEDS ORDERED: OXYcodone 5 MG/5 ML ORAL.SOL UDC PO PRN (07:30)
[2018-03-18] MEDS ORDERED: LABETALOL 5MG/ML, 20ML IV PRN (07:30)
[2018-03-18] MEDS ORDERED: FENTANYL PF 100 MCG/2ML ONE (08:54)
[2018-03-18] MEDS ORDERED: OXYcodone 5 MG/5 ML ORAL.SOL UDC ONE (08:55)
[2018-03-18] MEDS: FENTANYL PF 100 MCG/2ML IV PRN ×2 (08:57→09:20)
[2018-03-18] MEDS ORDERED: KETOROLAC 30 MG/1 ML IVPush PRN (09:00)
[2018-03-18] MEDS ORDERED: morphine SULFATE 10 MG/ML, 1ML IVPush PRN (09:00)
[2018-03-18] MEDS ORDERED: HYDROcodone/APAP 5/325 TABLET PO PRN (09:00)
[2018-03-18] MEDS ORDERED: ONDANSETRON 2MG/ML, 2ML IVPush PRN (09:00)
[2018-03-18] MEDS ORDERED: KETOROLAC 30 MG/1 ML ONE (09:39)
== END 2018-03-18 10:40 | disposition home or self-care (01) ==
LOC: OUT 05:48
PROVIDERS: ATTEND Thoracic Surgery (Cardiothoracic Vascular Surgery)
DX: K40.20 Bilateral inguinal hernia, without obstruction or gangrene, not specified as recurrent (principal); I48.91 Unspecified atrial fibrillation; G89.4 Chronic pain syndrome; E11.9 Type 2 diabetes mellitus without complications; I10 Essential (primary) hypertension; Z85.01 Personal history of malignant neoplasm of esophagus; Z90.49 Acquired absence of other specified parts of digestive tract; Z98.890 Other specified postprocedural states; Z79.899 Other long term (current) drug therapy
CPT/HCPCS: 49650; 82962; C1727; C1781; J0171; J0330; J0690; J1885; J2250; J2370; J2704; J2710; J3010; J3490; J7120

== ENCOUNTER → 2018-08-07 | Outpatient (CLI) | payer OTHER ==
[~2018-08-07] MED LIST changes: -BENA20TA4 PO; +BENA20TA54 PO; +OMNIPAQUE 350 MG/ML, 100ML BOTTLE ONE; +SENN-177 PO; -SENN1TAB8 PO; -TRAZ-136 PO; +TRAZ50TA66 PO
[2018-08-07 13:58] LABS: CREATININE 0.85 mg/dL (0.7-1.3)
== END | disposition home or self-care (01) ==
LOC: RAD 13:20
PROVIDERS: ATTEND Internal Medicine Hematology & Oncology
DX: C15.5 Malignant neoplasm of lower third of esophagus (principal)
CPT/HCPCS: 36415; 71260; 82565; Q9967